=== PATIENT | female | born 1990 | race Two or more races ===

== ENCOUNTER 2017-03-13 10:23 | Emergency (ER) | payer SELFPAY ==
[~2017-03-13 10:23] MED LIST: ADVAIR 25028 BLISTER INH; ADVIL200 M3 PO; ALBUTEROL SULF8.5 GM IH; ALBUTEROL0.63 MG/1 IH; ALBUTEROL0.83 MG/ML INH; ALBUTEROL17 GM; ALBUTEROL2.5 MG/3 M INH; AMOXICILLIN500 M PO; ANAPROX DS550 MG PO; ATENOLOL50 MG PO; ATIVAN0.5 M1 PO; BACTRIM DS TAB1 EAC2 PO; BACTRIM DS1 TAB PO; CATAFLAM50 MG PO; CIPRO500 MG PO; CLONAZEPAM1 M2 PO; COLACE100 MG PO; CYCLOBENZAPRINE10 M1 PO; CYCLOBENZAPRINE5 M1 PO; DARVOCET A5001 EACH PO; DARVOCET-N 1001 EA PO; DARVOCET-N 1001 TAB; DARVOCET-N 1001 TAB PO; DICLOFENAC POTA50 M1 PO; FLEXERIL10 MG PO; IBUPROFEN600 MG PO; KLONOPIN1 M1 PO; LEXAPRO10 MG; MELATONIN3 M4 PO; METOPROLOL; METOPROLOL PO; METOPROLOL SUC100 M1 PO; METOPROLOL TART50 M2 PO; MOTRIN600 MG PO; NEURONTIN100 M1 PO; NEURONTIN100 MG PO; NO MEDS; NORCO 10/325 TA1 TAB PO; NORCO 5-325 TA1 EACH PO; NORCO 5/325 TAB1 TAB PO; NORCO 5/3251 TAB PO; NORCO 7.5/325 T1 TAB PO; OXYCODONE-ACET1 EAC3 PO; PEN-VEE K500 MG PO; PENICILLIN V P500 M1 PO; PEPCID20 M1 PO; PHENERGAN25 M4 RC; POTASSIUM CHLO20 MEQ PO; PROAIR HFA8.5 GM IH; PROPANOLOL PO; PROVENTIL HFA6.7 G1 IH; PROVENTIL HFA6.7 GM IH; SEROQUEL X300 MG/TAB PO; SEROQUEL XR300 MG PO; SEROQUEL XR400 M2 PO; SEROQUEL100 M1 PO; SEROQUEL300 M1 PO; SEROQUEL300 MG; SEROQUEL400 M1 PO; TENORMIN50 M1 PO; TENORMIN50 MG PO; TRAZODONE HCL100 M1 PO; ULTRAM50 M1 PO; XANAX2 MG; XANAX2 MG PO; ZITHROMAX250 M1 PO; ZOFRAN ODT4 MG PO; ZOFRAN4 M2; ZOFRAN4 M2 PO
[2017-03-13] MEDS ORDERED: AMBIEN5 M1 PO (10:46)
[2017-03-13 11:27] LABS: BASO % 0.2 % (0-2); HCT-HEMATOCRIT 36.7 % (34.0-49.0); HGB-HEMOGLOBIN 12.2 gm/dl (12.0-15.5); IMMATURE GRANULOCYTES ABSOLUTE 0.01 tho/cmm (0-0.03); IMMATURE GRANULOCYTES PERCENT 0.2 % (0-0.3); LYMPH % 29.7 % (20-45); LYMPH ABSOLUTE COUNT 1.6 tho/cmm (0.8-4.5); MCH (MEAN CORPUSCULAR HGB) 28.2 pg (28.0-32.0); MCHC MEAN CORPUSCULAR HGB CONC 33.2 % (32.0-36.0); MEAN PLATELET VOLUME 8.8 cmc (9.4-12.4); MONO % 7.5 % (0-12); MONOCYTE ABSOLUTE COUNT 0.4 tho/cmm (0.0-1.2); NEUTROPHIL ABSOLUTE COUNT 3.3 tho/cmm (1.6-8.0); NEUTROPHIL-AUTOMATED 3.3 tho/cmm (1.6-8.0); NEUTROPHILS % 62.4 % (40-80); PLATELET COUNT 305 tho/cmm (150-450); RED BLOOD COUNT 4.32 mil/cmm (4.00-5.20); RED CELL DISTRIBUTION WIDTH 14.6 % (12.4-16.4); WHITE BLOOD COUNT 5.4 tho/cmm (4.0-10.0)
[2017-03-13 11:40] LABS: PREGNANCY-SERUM NEGATIVE (NEGATIVE)
[2017-03-13 11:49] LABS: ALB/GLOB RATIO 0.9 (0.8-2.0); ALBUMIN 3.5 g/dl (3.5-5.0); ALKALINE PHOSPHATASE 63 U/L (33-138); ALT/SGPT 24 U/L (12-78); ANION GAP 10 mmol/L (0-20); AST/SGOT 13 U/L (10-40); BILIRUBIN,DIRECT <0.1 mg/dl (0.0-0.3); BILIRUBIN,INDIRECT 0.1 mg/dL (0.0-1.0); BILIRUBIN,TOTAL 0.2 mg/dl (0-1.5); BLOOD UREA NITROGEN 5 mg/dl (6-24); CALCIUM 8.6 mg/dl (8.5-10.5); CARBON DIOXIDE-VENOUS 27 mmol/L (22-32); CHLORIDE 112 mmol/l (96-110); CREATININE 0.67 mg/dl (0.50-1.10); GLUCOSE 99 mg/dL (70-110); LIPASE 109 U/L (73-393); POTASSIUM 3.7 mmol/L (3.7-5.1); SODIUM 145 mmol/L (135-145); eGFR VALUE FOR BLACK >90 mL/Min
[2017-03-13] MEDS ORDERED: COMPAZINE10 MG PO (12:44)
[2017-03-13] MEDS ORDERED: NORCO 5-325 TA1 EACH PO (12:44)
[2017-05-18] MEDS ORDERED: ALBUTEROL1.25 MG/3 INH (14:39)
== END 2017-03-13 12:54 ==
LOC: EDMED 10:23
PROVIDERS: Emergency Medicine
DX: R09.1 Pleurisy (principal); F17.200 Nicotine dependence, unspecified, uncomplicated; Z86.711 Personal history of pulmonary embolism; Z90.89 Acquired absence of other organs; Z79.899 Other long term (current) drug therapy
CPT/HCPCS: J1885; J7030